=== PATIENT | female | born 1995 | race Hispanic/Latino ===

== ENCOUNTER 2024-06-02 13:23 | Emergency (ER) | payer MEDICAID ==
[~2024-06-02] VITALS: Ht 175.3 cm; Wt 90.7 kg
--- NOTE | 2024-06-02 13:35 | ERN ---
ED Note History of Present Illness Stated Complaint: WRIST PAIN Chief Complaint: Wrist Pain/Injury Time Seen by MD: 13:29 Dictation: PATIENT IS A 28-YEAR-OLD FEMALE HERE WITH LEFT WRIST PAIN AFTER A SLIP FALL WHILE ROLLER-SKATING IN [place] THREE DAYS AGO. SHE HAS TAKEN NOTHING PRIOR TO ARRIVAL FOR PAIN SHE DID NOT GET SEEN BY A DOCTOR IN [place] NOR DID SHE SEE HER DOCTOR HERE LOCALLY WHEN SHE RETURNED BACK TO [place]. NEUROVASCULAR CMS INTACT. Allergies: Coded Allergies: Influenza Virus Vaccines (Unverified Allergy, Unknown, 06/02/24) Past Medical History Past Medical History: Cancer, Schizophrenia, Other Additional Past Medical Hx: AUTISM, ADHD,GULLAIN BARRE Surgical History: None History: Not Applicable RN Note Reviewed/Agreed w/PFSH: Yes Review of System Dictation CONSTITUTIONAL: NEGATIVE EXCEPT FOR HPI HEAD/FACE: NEGATIVE EXCEPT FOR HPI EENT: NEGATIVE EXCEPT FOR HPI RESPIRATORY: NEGATIVE EXCEPT FOR HPI GASTROINTESTINAL/ABDOMINAL: NEGATIVE EXCEPT FOR HPI GENITOURINARY: NEGATIVE EXCEPT FOR HPI MUSCULOSKELETAL: NEGATIVE EXCEPT FOR HPI LEFT WRIST PAIN SWELLING INTEGUMENTARY: NEGATIVE EXCEPT FOR HPI NEUROLOGICAL/PSYCH: NEGATIVE EXCEPT FOR HPI HEMATOLOGIC/LYMPHATIC: NEGATIVE EXCEPT FOR HPI ALL SYSTEMS NEGATIVE, EXCEPT NOTED ABOVE. 13 POINT REVIEW OF SYSTEMS ASSESSED AND ALL NEGATIVE EXCEPT FOR ABOVE. Initial Vital Sign VS Vital Signs Date Time Temp Pulse Resp B/P (MAP) Pulse Ox O2 Delivery O2 Flow Rate FiO2 06/02/24 13:28 98.4 68 18 123/75 98 Physical Exam Dictation VITAL SIGNS REVIEWED GENERAL APPEARANCE: ALERT, ORIENTED X 3, MILD ACUTE DISTRESS, WELL DEVELOPED, NOURISHED. HEAD AND FACE: NON-TRAUMATIC. EYES: PERRL, PINK CONJUNCTIVAS, EYELID NO TRAUMA, ANTERIOR CHAMBER WITH ARCUS SENILIS. EARS: PINNAS INTACT AND NO SIGNS OF TRAUMA OR ERYTHEMA EAR CANALS CLEAR AND NO DISCHARGE TM NO ERYTHEMA NOSE: NO DISCHARGE, NO BLEEDING. OROPHARYNX: MOUTH NORMAL, TONGUE PINK, PHARYNX CLEAR,NO ERYTHEMA, TONSILS NO EXUDATES, NO ABSCESSES NOTED, MUCOUS MEMBRANE MOIST NECK: SUPPLE, NON-TENDER, NO THYROMEGALY, NO MASSES, NO JVD, NO BRUITS BREAST:DEFERRED CHEST:NO TENDERNESS, NO CREPITUS, NO PARADOXICAL MOVEMENT, NO RETRACTIONS LUNGS:CLEAR, WELL-VENTILATED, SYMMETRIC, NO RALES, NO WHEEZING, NO RHONCHI, NO STRIDOR, GOOD BREATH SOUNDS BILATERALLY HEART: REGULAR RATE, REGULAR RHYTHM, NO MURMUR, NO GALLOPS VASCULAR: NO PERIPHERAL EDEMA, ABDOMEN: SOFT, POSITIVE BOWEL SOUNDS, NONDISTENDED, NO GUARDING, NONTENDER, NO REBOUND, NO MASSES NO HEPATOMEGALY, NO SPLENOMEGALY, NO WALKER'S SIGN, NO HERNIAS. RECTAL: DEFERRED GENITAL: DEFERRED NEUROLOGICAL: NORMAL SPEECH, MOTOR FUNCTION INTACT, SENSORY FUNCTION INTACT MUSCULOSKELETAL: NECK NONTENDER, FULL RANGE OF MOTION, BACK NONTENDER, FULL RANGE OF MOTION, EXTREMITIES: MILD DIFFUSE TENDERNESS TO LEFT WRIST WITHOUT SIGNIFICANT SWELLING NOTED. DECREASED RANGE OF MOTION SECONDARY TO PAIN. SKIN: COLOR PINK, DRY, NO TURGOR, NO RASH, NO LACERATIONS, NO ABRASIONS, NO CONTUSIONS. LYMPHATIC: DEFERRED Results (Laboratory/Radiology) Laboratory/Radiology LEFT WRIST X-RAY NEGATIVE Labs Reviewed?: Yes ED Course ED Course Orders Procedure Category Date Status Time Wrist Comp 3+Vws Lt RAD 06/02/24 Taken 13:33 Acetaminophen 500mg PHA 06/02/24 Complete Tab (Tylenol 500mg T 14:00 Acetaminophen 500mg PHA 06/02/24 Complete Tab (Tylenol 500mg T 14:00 Current Medications Medications (Trade) Dose Ordered Sig/Fadia Route PRN Reason Start Time Stop Time Status Last Admin Dose Admin Acetaminophen (TYLenol 500MG TAB) 1,000 mg ONCE ONCE PO 06/02/24 14:00 06/02/24 14:01 DC 06/02/24 14:47 Acetaminophen (TYLenol 500MG TAB) 1,000 mg ONCE ONCE PO 06/02/24 14:00 06/02/24 14:01 DC Vital Signs Date Time Temp Pulse Resp B/P (MAP) Pulse Ox O2 Delivery O2 Flow Rate FiO2 06/02/24 13:28 98.4 68 18 123/75 98 1514/PATIENT PLACED WHEN IRISH WRAP TO LEFT WRIST AND DISCHARGED HOME TO FOLLOW UP WITH DR. CHAN NEXT WEEK. Medical Decision Making MDM MEDICAL DISCHARGE MAKING BASED ON PAIN MANAGEMENT AND X-RAY OF LEFT WRIST LEFT WRIST X-RAY NEGATIVE, IRISH WRAP APPLIED [facility] NEUROVASCULAR CMS INTACT POST PLACEMENT DISCHARGED HOME WITH IBUPROFEN AND FOLLOW UP WITH DR. MARIANGEL CHAN NEXT WEEK DX & DISP Disposition: Discharge Departure Impression: Primary Impression: Left wrist sprain Additional Impression: Fall from roller skates Condition: Stable Scripts Ibuprofen (Ibuprofen 800 mg Tab) 800 Mg Tab 800 MG PO Q8H PRN for fever or pain, #30 TAB 0 Refills Prov: MARY LOU ESTEBAN NP 06/02/24 Additional Instructions: FOLLOW-UP WITH PRIMARY CARE PROVIDER IN 1 TO 2 DAYS. TAKE MEDICATIONS DIRECTED HERE IN THE EMERGENCY ROOM. OKAY TO CONTINUE HOME MEDICATIONS UNLESS OTHERWISE DISCUSSED DURING YOUR VISIT IN THE EMERGENCY ROOM TODAY. RETURN TO YOUR NEAREST EMERGENCY ROOM IF SYMPTOMS WORSEN OR IF THERE IS NO IMPROVEMENT. CALL 911 IF YOU NEED IMMEDIATE ASSISTANCE. TAKE TYLENOL OR MOTRIN [id number] NEEDED AND IF NO CONTRAINDICATIONS ARE PRESENT. INCREASE ORAL HYDRATION. A WOUND CULTURE OR URINE CULTURE WAS ORDERED HERE IN THE EMERGENCY ROOM DEPARTMENT PLEASE FOLLOW-UP WITH PRIMARY CARE PROVIDER AND ADVISE THEM TO GET REPEAT PORTS FROM OUR FACILITY. IF YOU HAD ANY IRISH WRAP/SPLINTS THAT WERE APPLIED HERE, PLEASE DO NOT REMOVE THEM UNTIL YOU SEE YOUR PRIMARY CARE OR SPECIALTY. IRISH WRAP AND NO WEIGHT-BEARING TO LEFT WRIST UNTIL CLEARED BY ORTHOPEDIC SURGEON, CALL HER FOR AN APPOINTMENT ON TUESDAY. Referrals: SELF,REFERRAL (PCP) MARIANGEL CHAN MD, JACK P NP Jun 02, 2024 13:35
[2024-06-02 14:00] VITALS: TEMP 97
[2024-06-02] MEDS: acetaMINOPHEN 500 MG TABLET PO ONE ×2 (14:45→14:47)
[2024-06-02] MEDS ORDERED: IBUP-2077 PO (15:14)
--- NOTE | 2024-06-02 15:18 | HMCIMG ---
WRIST COMP 3+VWS LT HISTORY: Pain COMPARISON: None TECHNIQUE: 3 images of left wrist were obtained. FINDINGS: There is no acute displaced fracture or dislocation. IMPRESSION: 1. Findings as described above.
[2024-06-02 15:57] VITALS: BP 104/76; PULSE 68; RESP 16; O2SAT 98
== END 2024-06-02 15:58 | disposition home or self-care (01) ==
LOC: EDH 13:23
DX: S63.592A Other specified sprain of left wrist, initial encounter (principal); F20.9 Schizophrenia, unspecified; F84.0 Autistic disorder; Z88.7 Allergy status to serum and vaccine; W18.39XA Other fall on same level, initial encounter; Y93.51 Activity, roller skating (inline) and skateboarding; Y92.89 Other specified places as the place of occurrence of the external cause; Y99.8 Other external cause status
CPT/HCPCS: 73110; 99283

== ENCOUNTER 2024-10-22 14:55 | Emergency (ER) | payer MEDICAID ==
[~2024-10-22] VITALS: Ht 175.3 cm; Wt 108.9 kg
[~2024-10-22 14:55] MED LIST: IBUP-2077 PO
--- NOTE | 2024-10-22 16:02 | HMCIMG ---
Exam Type: KNEE 3VWS LT Clinical Information: fall Comparison: None Findings: The bone examination is unremarkable. No fractures or dislocations are seen. No radiopaque foreign bodies are noted. Soft tissues are preserved. IMPRESSION: Normal examination.
--- NOTE | 2024-10-22 16:19 | HMCIMG ---
Exam Type: ANKLE COMP 3VWS RT Clinical Information: fall Comparison: None Findings: Routine views of the ankle reveal no evidence of acute fracture or dislocation. The ankle mortise is intact. There is soft tissue swelling over the lateral malleolus consistent with inversion injury. IMPRESSION: Evidence of inversion injury.
--- NOTE | 2024-10-22 17:27 | ERN ---
ED Note History of Present Illness Stated Complaint: LT KNEE AND RT ANKLE PAIN Chief Complaint: Mechanical Fall Time Seen by MD: 17:13 Time Seen by Midlevel: 17:13 Dictation: The Patient is a 29-year-old female with a history of autism, ADHD who presents to the emergency department with complaints of a slip and fall just prior to arrival. Patient reports her right foot slipped causing her to twist her ankle and landing on her left knee. No other injuries reported. Allergies: Coded Allergies: Influenza Virus Vaccines (Unverified Allergy, Unknown, 06/02/24) Home Meds Active Scripts Ibuprofen (Ibuprofen 800 mg Tab) 800 Mg Tab, 800 MG PO Q8H PRN for fever or pain, #30 TAB 0 Refills Prov:MARY LOU ESTEBAN WRAPPER OPENER 06/02/24 Past Medical History Past Medical History: Anxiety, Cancer, Depression, Schizophrenia, Other Additional Past Medical Hx: AUTISM, ADHD,GULLAIN BARRE Surgical History: None History: Not Applicable RN Note Reviewed/Agreed w/PFSH: Yes Review of System Dictation Constitutional: Negative for fever,chills, and weight loss Eyes: Negative for injury, pain,redness, and discharge ENT: Negative for injury,pain or swelling Cardiovascular: Negative for chest pain, palpitations, and edema Respiratory: Negative for shortness of breath, cough, and wheezing, Abdomen/GI: Negative for abdominal pain, nausea, vomiting, diarrhea, and constipation Back: Negative for injury and pain : Negative for injury, bleeding and discharge MS/Extremity: Positive for right ankle pain, injuries left knee injury Skin: Negative for rash, and discoloration Neuro: Negative for headache, weakness, numbness, tingling, and seizure Psych: Negative for suicide ideation, homicidal ideation, and hallucinations Initial Vital Sign VS Vital Signs Date Time Temp Pulse Resp B/P (MAP) Pulse Ox O2 Delivery O2 Flow Rate FiO2 10/22/24 14:59 98.2 77 20 112/72 97 Room Air 0 10/22/24 17:28 21 Physical Exam Dictation Vital Signs reviewed General Appearance: Alert, oriented x 3, no acute distress, well developed, nourished. Head and Face: non-traumatic. Eyes: PERRL, pink conjunctivas, eyelid no trauma, anterior chamber with arcus senilis. Ears: Pinnas intact and no signs of trauma or erythema ear canals clear and no discharge TM no erythema Nose: No discharge, no bleeding. Oropharynx: Mouth normal, tongue pink. pharynx clear,no erythema, tonsils no exudates, no abscesses noted, mucous membrane moist Neck: Supple, non-tender, no thyromegaly, no masses, no JVD, no bruits Breast:Deferred Chest:No tenderness, no crepitus, no paradoxical movement, no retractions Lungs:Clear, well-ventilated, symmetric, no rales, no wheezing, no rhonchi, no stridor, good breath sounds bilaterally Heart: Regular rate, regular rhythm, no murmur, no gallops Vascular: no peripheral edema, dorsalis pedis 3+ bilaterally Abdomen: Soft, positive bowel sounds, nondistended, no guarding, nontender, no rebound, no masses no hepatomegaly, no splenomegaly, no Mitchell's sign, no hernias. Rectal: Deferred Genital: Deferred Neurological: Normal speech, motor function intact, sensory function intact Musculoskeletal: Neck nontender, full range of motion, back nontender, full range of motion, Extremities: nontender, full range of motion , left knee tenderness, full range of motion, right ankle with mild swelling, no open wounds, cap refill less than 2 seconds Skin: Color pink, dry, no turgor, no rash, no lacerations, no abrasions, no contusions. Lymphatic: Deferred Results (Laboratory/Radiology) Laboratory/Radiology REASON: fall ORDERING PHYSICIAN: YAIMA KAPLAN DO PROCEDURE: KNEE 3V LT - KNEE 3VWS LT Exam Type: KNEE 3VWS LT Clinical Information: fall Comparison: None Findings: The bone examination is unremarkable. No fractures or dislocations are seen. No radiopaque foreign bodies are noted. Soft tissues are preserved. IMPRESSION: Normal examination. REASON: fall ORDERING PHYSICIAN: YAIMA KAPLAN DO PROCEDURE: [id number] - ANKLE COMP 3VWS RT Exam Type: ANKLE COMP 3VWS RT Clinical Information: fall Comparison: None Findings: Routine views of the ankle reveal no evidence of acute fracture or dislocation. The ankle mortise is intact. There is soft tissue swelling over the lateral malleolus consistent with inversion injury. IMPRESSION: Evidence of inversion injury. Labs Reviewed?: Yes ED Course ED Course Orders Procedure Category Date Status Time Ankle Comp 3vws Rt RAD 10/22/24 Resulted 15:13 Knee 3vws Lt RAD 10/22/24 Resulted 15:13 Apply Juan Ramon Wrap (Er) CPOE 10/22/24 Transmitted 17:17 Crutches W/Training CPOE 10/22/24 Transmitted (Er) 17:17 Vital Signs Date Time Temp Pulse Resp B/P (MAP) Pulse Ox O2 Delivery O2 Flow Rate FiO2 10/22/24 17:28 99.0 88 16 141/79 100 Room Air* 0 21 10/22/24 14:59 98.2 77 20 112/72 97 Room Air 0 Medical Decision Making MDM The Patient is a 29-year-old female with a history of autism, ADHD who presents to the emergency department with complaints of a slip and fall just prior to arrival. Patient reports her right foot slipped causing her to twist her ankle and landing on her left knee. No other injuries reported. X-rays showed no acute fractures or dislocation. Patient neurovascularly intact. We will be discharged to follow up with the orthopedic. Differential diagnosis: Ankle fracture, ankle sprain, knee sprain Need for hospitalization: Patient does not meet criteria for hospitalization. There are no social concerns with this patient. DX & DISP Disposition: Discharge Departure Impression: Primary Impression: Right ankle sprain Additional Impressions: Fall, Contusion of left knee Condition: Stable Additional Instructions: Your xray showed no acute fractures. your symptoms are due to a sprain. Please follow up with pcp.Avoid any activities that could further injure you. FOLLOW-UP WITH PRIMARY CARE PROVIDER IN 1 TO 2 DAYS. TAKE MEDICATIONS DIRECTED HERE IN THE EMERGENCY ROOM. OKAY TO CONTINUE HOME MEDICATIONS UNLESS OTHERWISE DISCUSSED DURING YOUR VISIT IN THE EMERGENCY ROOM TODAY. RETURN TO YOUR NEAREST EMERGENCY ROOM IF SYMPTOMS WORSEN OR IF THERE IS NO IMPROVEMENT. CALL 911 IF YOU NEED IMMEDIATE ASSISTANCE. TAKE TYLENOL OR MOTRIN OVER-THE-C OUNTER NEEDED AND IF NO CONTRAINDICATIONS ARE PRESENT. INCREASE ORAL HYDRATION. A WOUND CULTURE OR URINE CULTURE WAS ORDERED HERE IN THE EMERGENCY ROOM DEPARTMENT PLEASE FOLLOW-UP WITH PRIMARY CARE PROVIDER AND ADVISE THEM TO GET REPEAT PORTS FROM OUR FACILITY. IF YOU HAD ANY JUAN RAMON WRAP/SPLINTS THAT WERE APPLIED HERE, PLEASE DO NOT REMOVE THEM UNTIL YOU SEE YOUR PRIMARY CARE OR SPECIALTY. Referrals: LOGAN GUY MD (PCP) JOSÉ MIGUEL MACKENZIE DO Time of Disposition: 17:21 I have reviewed the case, and I agree with, Diagnosis and Plan BRIAN BURNS October 22, 2024 17:26 YAIMA KAPLAN DO October 22, 2024 18:03
[2024-10-22 17:28] VITALS: BP 141/79; PULSE 88; RESP 16; TEMP 98.9; O2SAT 100
== END 2024-10-22 17:35 | disposition home or self-care (01) ==
LOC: EDH 14:55
DX: S93.401A Sprain of unspecified ligament of right ankle, initial encounter (principal); S80.02XA Contusion of left knee, initial encounter; F20.9 Schizophrenia, unspecified; F84.0 Autistic disorder; Z88.7 Allergy status to serum and vaccine; W01.0XXA Fall on same level from slipping, tripping and stumbling without subsequent striking against object, initial encounter; Y93.89 Activity, other specified; Y92.89 Other specified places as the place of occurrence of the external cause; Y99.8 Other external cause status
CPT/HCPCS: 73562; 73610; 99284